=== PATIENT | female | born 1995 | race African-American/Black ===

== ENCOUNTER 2022-01-05 11:17 | Emergency (ER) | payer MEDICAID ==
[~2022-01-05] VITALS: Ht 160 cm; Wt 82.0 kg
[2022-01-05 11:32] VITALS: BP 117/78
== END 2022-01-05 17:29 | disposition left against medical advice (07) ==
LOC: ER 11:17
DX: Z53.21 Procedure and treatment not carried out due to patient leaving prior to being seen by health care provider (principal)